=== PATIENT | male | born 1955 | race American Indian/Alaskan Native ===

== ENCOUNTER 2017-11-18 08:52 | Inpatient (IN) | payer OTHER ==
[2017-11-18] MEDS ORDERED: ASPIRIN PO ONE (10:06)
[2017-11-18 10:49] LABS: Basophils % (Auto) 0.6 % (0.0-1.8); Eosinophils # (Auto) 0.1 K/mm3 (0.0-0.4); Eosinophils % (Auto) 2.7 % (0.0-4.3); Hematocrit 41.2 % (35.5-45.6); Lymphocytes # (Auto) 1.1 K/mm3 (1.2-5.4); Lymphocytes % (Auto) 21.2 % (13.4-35.0); Mean Corpuscular HGB Conc 34 % (32-34); Mean Corpuscular Hemoglobin 28 pg (28-32); Mean Corpuscular Volume 83 fl (84-94); Monocytes # (Auto) 0.6 K/mm3 (0.0-0.8); Monocytes % (Auto) 11.9 % (0.0-7.3); Platelet Count 180 K/mm3 (140-440); Red Blood Count 4.98 M/mm3 (3.65-5.03); Red Cell Distribution Width 14.4 % (13.2-15.2)
[2017-11-18 11:03] LABS: BUN/Creatinine Ratio 19; Blood Urea Nitrogen 13 mg/dL (9-20); Calcium 8.6 mg/dL (8.4-10.2); Hemolysis Index 6
--- NOTE | 2017-11-18 11:22 | Emergency Department Report ---
ED Chest Pain HPI - General Chief Complaint: Chest Pain Stated Complaint: CHEST PAIN Time Seen by Provider: 11/18/17 10:19 Source: patient, EMS, old records reviewed Mode of arrival: Stretcher Limitations: No Limitations - History of Present Illness Initial Comments: 62-year-old male with a past medical history of hypertension and obesity presents to the hospital complaining of jaw pain radiating to his bilateral shoulders and chest intermittent 3 days. Patient is about to get dental implants and had several caps removed from his teeth and therefore he thought that the pain was due to a possible dental infection. Pt has been taking Motrin intermittently which helps with the pain. We stop the Motrin if pain returns. 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 He also denies associated nausea, vomiting, shortness of breath, or diaphoresis. Mild URI symptoms reported. Patient has several stress tests in the past but denies having one within the last 5 years. Father of [place] in his 70s. Patient has a history of smoking but denies current tobacco use. Patient was seen at a [facility] facility prior to transfer to the ED. EKG showed lateral T-wave inversions compared to 2015. Patient has troponin I levels drawn which show elevation of 3.01 with greater than 0.5 positive for acute [place]. Patient received nitroglycerin paste, aspirin, and a heparin bolus of 4000 units prior to transfer to the ED. Patient also had an outpatient chest x-ray with official report that was negative for acute cardiopulmonary process. [facility] provided discussed case with gear shaper Dr. Sue prior to transfer to the ED as per [facility] note review. Severity scale (0 -10): 8 - Related Data Allergies Allergy/AdvReac Type Severity Reaction Status Date / Time clonidine AdvReac Unknown Verified 11/18/17 09:47 Heart Score - HEART Score History: Moderately suspicious EKG: Non-specific Age: 45-65 Risk factors: 1-2 risk factors Troponin: 1-3x normal limit HEART Score: 5 ED Review of Systems ROS: Stated complaint: CHEST PAIN Other details as noted in HPI Comment: All other systems reviewed and negative Other: Constitutional: No fevers chills Eyes: No eye pain visual changes ENT: jaw pain Neck: Denies pain Respiratory: Denies cough wheezing sob Cardiovascular: Denies palpitations, syncope GI: Denies abdominal pain, nausea, vomiting, diarrhea : Denies dysuria Musculoskeletal: Denies back pain Skin: Denies rash, lesions, erythema Neurologic: Denies headache, numbness, weakness Psychiatric: Denies suicidal ideation, hallucinations ED Past Medical Hx - Past Medical History Previous Medical History?: Yes Hx Hypertension: Yes Additional medical history: Hx of cataract - Surgical History Past Surgical History?: No - Social History Smoking Status: Former Smoker Substance Use Type: None ED Physical Exam - General Limitations: No Limitations - Other Other exam information: General: No limitations, patient is alert in no acute distress Head exam: Atraumatic, normocephalic Eyes exam: Normal appearance ENT: Moist mucous membrane, normal oropharynx Neck exam: Normal inspection, full range of motion, no meningismus nontender Respiratory exam: Clear to auscultation bilateral, no wheezes, rales, crackles Cardiovascular: Normal rate and rhythm Abdomen: Soft, nondistended, and nontender, with normal bowel sounds, no rebound, or guarding Extremity: Full range of motion normal inspection no deformity Back: Normal Inspection, full range of motion, no tenderness Neurologic: Alert, oriented x3, cranial nerves intact, no motor or sensory deficit Psychiatric: normal affect, normal mood Skin: Warm, dry, intact ED Course Vital Signs 11/18/17 11/18/17 11/18/17 09:23 09:30 09:32 Temperature 98.4 F Pulse Rate 92 H 91 H Respiratory 18 18 22 Rate Blood Pressure 124/90 127/81 Blood Pressure 127/81 [Left] O2 Sat by Pulse 96 92 94 Oximetry 11/18/17 11/18/17 11/18/17 09:45 09:49 10:00 Temperature 98.4 F Pulse Rate 91 H 91 H Respiratory 15 22 13 Rate Blood Pressure 136/86 139/89 Blood Pressure 127/81 [Left] O2 Sat by Pulse 95 94 95 Oximetry - Consultations Consultation #1: 11/18/17 11:22 case d/w Dr Lunsford with [facility], per her notes case was discussed with Dr Sue cardiology here prior to transfer (confirmed by notes) unsure as to which group Dr. Sue is affiliated since both groups have a Dr. Sue and there is no first name included. Case was discussed with charge nurse was unaware that troponin was positive Patient was then transferred to the ED for evaluation [facility] physician has agreed to outpatient to be admitted here. I'm awaiting callback of cardiology fashion illustrator Consultation #2: 11/18/17 11:36 case d/w El[facility] with [facility], will eval pt ELOY score - Eloy Score Age > 65: (0) No Aspirin use within the Past 7 Days: (1) Yes 3 or more CAD Risk Factors: (1) Yes 2 or more Angina events in past 24 hrs: (1) Yes Known CAD with more than 50% Stenosis: (0) No Elevated Cardiac Markers: (1) Yes ST Deviation Greater than 0.5mm: (0) No ELOY Score: 4 ED Medical Decision Making - Lab Data Result diagrams: 11/18/17 10:45 11/18/17 10:45 Lab Results 11/18/17 11/18/17 Range/Units 10:45 10:45 WBC 5.2 (4.5-11.0) K/mm3 RBC 4.98 (3.65-5.03) M/mm3 Hgb 14.0 (11.8-15.2) gm/dl Hct 41.2 (35.5-45.6) % MCV 83 L (84-94) fl MCH 28 (28-32) pg MCHC 34 (32-34) % RDW 14.4 (13.2-15.2) % Plt Count 180 (140-440) K/mm3 Lymph % (Auto) 21.2 (13.4-35.0) % [place] % (Auto) 11.9 H (0.0-7.3) % Eos % (Auto) 2.7 (0.0-4.3) % Baso % (Auto) 0.6 (0.0-1.8) % Lymph # 1.1 L (1.2-5.4) K/mm3 [place] # 0.6 (0.0-0.8) K/mm3 Eos # 0.1 (0.0-0.4) K/mm3 Baso # 0.0 (0.0-0.1) K/mm3 Seg Neutrophils % 63.6 (40.0-70.0) % Seg Neutrophils # 3.3 (1.8-7.7) K/mm3 Sodium 139 (137-145) mmol/L Potassium 3.9 (3.6-5.0) mmol/L Chloride 98.7 (98-107) mmol/L Carbon Dioxide 28 (22-30) mmol/L Anion Gap 16 mmol/L BUN 13 (9-20) mg/dL Creatinine 0.7 L (0.8-1.5) mg/dL Estimated GFR > 60 ml/min BUN/Creatinine Ratio 19 % Glucose 231 H (75-100) mg/dL Calcium 8.6 (8.4-10.2) mg/dL Troponin T 0.754 H* (0.00-0.029) ng/mL Triglycerides 279 H (2-149) mg/dL Cholesterol 155 (50-199) mg/dL LDL Cholesterol Direct 75 (50-130) mg/dL HDL Cholesterol 25 L (40-59) mg/dL Cholesterol/HDL Ratio 6.20 % - EKG Data -: EKG Interpreted by Me EKG shows normal: sinus rhythm, axis (-26), QRS complexes (97), ST-T waves (old inf t inv, flat lat t waves) Rate: normal - EKG Data When compared to previous EKG there are: changes noted 11/18/17 11:32 EKG serum bicarbonate is reviewed. EKG from 2014 shows flat and upright lateral T waves. EKG in the office on 6:57 AM shows lateral T wave inversions. Also lateral T-wave inversions in route to the hospital as per EMS EKG Chronic inferior T wave inversions noted Critical Care Time: No Critical care attestation.: If time is entered above; I have spent that time in minutes in the direct care of this critically ill patient, excluding procedure time. ED Disposition Clinical Impression: NSTEMI (non-ST elevated myocardial infarction), HTN (hypertension) Disposition: OP ADMIT IP TO THIS HOSP Is pt being admited?: Yes Condition: Stable Time of Disposition: 11:37 (Dr galaviz/hosp)
[2017-11-18 11:36] LABS: HDL Cholesterol 25 mg/dL (40-59); LDL Cholesterol,Direct 75 mg/dL (50-130)
[2017-11-18] MEDS ORDERED: HEPARIN/ 0.45% NACL-25,000 UNIT/500 ML 25,000 UNIT/500 ML BAG IV SCH (12:00)
[2017-11-18 12:31] LABS: INR 0.95 (0.87-1.13)
[2017-11-18 12:32] LABS: Partial Thromboplastin Time 33.7 Sec. (24.2-36.6)
--- NOTE | 2017-11-18 15:57 | Consultation ---
History of Present Illness Consult date: 11/18/17 Consult reason: chest pain History of present illness: This is a 62yr old male with medical history of hypertension who presents to the hospital with complaints of chest pain. Patient was initially evaluated at [facility] who then referred the patient to this hospital for evaluation. Patient reports intermittent jaw pain associated with chest over 3 days. Patient is currently undergoing dental workup and thought his jaw pain was due to a possible dental infection. His ECG is a sinus rhythm, no acute ischemic changes. Initial labs shows a troponin T of 0.75. Cardiology consultation was requested for further evaluation. Medications and Allergies Allergies Allergy/AdvReac Type Severity Reaction Status Date / Time clonidine AdvReac Unknown Verified 11/18/17 09:47 Home Medications Medication Instructions Recorded Confirmed Last Taken Type Ibuprofen [Motrin] 800 mg PO Q6H PRN 11/18/17 11/18/17 11/17/17 History Active Meds: Active Medications Heparin Sodium/Sodium Chloride (Heparin/ 0.45% Nacl-25,000 Unit/500 Ml) 25,000 unit in 500 mls @ 20 mls/hr IV TITRATE KAILA; 1,000 UNITS/HR PRN Reason: Protocol Physical Examination Vital Signs Resp Pulse Ox 18 96 11/18/17 09:23 11/18/17 09:23 General appearance: no acute distress HEENT: Positive: PERRL Cardiac: Positive: Reg Rate and Rhythm Lungs: Positive: Decreased Breath Sounds Neuro: Positive: Grossly Intact Extremities: Absent: edema Results 11/18/17 10:45 11/18/17 10:45 Coagulation 11/18/17 Range/Units 12:00 PT 13.1 (12.2-14.9) Sec. INR 0.95 (0.87-1.13) APTT 33.7 (24.2-36.6) Sec. Lipids 11/18/17 Range/Units 10:45 Triglycerides 279 H (2-149) mg/dL Cholesterol 155 (50-199) mg/dL HDL Cholesterol 25 L (40-59) mg/dL Cholesterol/HDL Ratio 6.20 % CBC 11/18/17 Range/Units 10:45 WBC 5.2 (4.5-11.0) K/mm3 RBC 4.98 (3.65-5.03) M/mm3 Hgb 14.0 (11.8-15.2) gm/dl Hct 41.2 (35.5-45.6) % Plt Count 180 (140-440) K/mm3 Lymph # 1.1 L (1.2-5.4) K/mm3 [place] # 0.6 (0.0-0.8) K/mm3 Eos # 0.1 (0.0-0.4) K/mm3 Baso # 0.0 (0.0-0.1) K/mm3 Comprehensive Metabolic Panel 11/18/17 Range/Units 10:45 Sodium 139 (137-145) mmol/L Potassium 3.9 (3.6-5.0) mmol/L Chloride 98.7 (98-107) mmol/L Carbon Dioxide 28 (22-30) mmol/L BUN 13 (9-20) mg/dL Creatinine 0.7 L (0.8-1.5) mg/dL Glucose 231 H (75-100) mg/dL Calcium 8.6 (8.4-10.2) mg/dL Assessment and Plan NSTEMI initiated on IV heparin Hypertension Obesity We will recommend beta blockers, statin, nitro-paste, aspirin and plavix therapy. We will proceed with a left cardiac catheterization tomorrow morning for further ischemic evaluation.
[2017-11-18] MEDS ORDERED: PLAVIX PO ONE (17:00)
[2017-11-18 19:33] LABS: Creatine Kinase MB 13.7 ng/mL (0.0-4.0)
[2017-11-18] MEDS ORDERED: PLAVIX ONE (20:42)
[2017-11-18] MEDS: NITRO-BID 2% TP SCH (20:47)
--- NOTE | 2017-11-18 23:54 | History and Physical Report ---
History of Present Illness Date of examination: 11/18/17 Date of admission: 11/18/17 11:39 Chief complaint: CC Jaw pain and Chest pain 3 days History of present illness: History of Present Illness 62-year-old male with a past medical history of hypertension and obesity presents to the hospital complaining of jaw pain radiating to his bilateral shoulders and chest intermittent 3 days. Patient is about to get dental implants and had several caps removed from his teeth and therefore he thought that the pain was due to a possible dental infection. Pt has been taking Motrin intermittently which helps with the pain. We stop the Motrin if pain returns. 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 He also denies associated nausea, vomiting, shortness of breath, or diaphoresis. Mild URI symptoms reported. Patient has several stress tests in the past but denies having one within the last 5 years. Father of [place] in his 70s. Patient has a history of smoking but denies current tobacco use. Patient was seen at a [place] facility prior to transfer to the ED. EKG showed lateral T-wave inversions compared to 2015. Patient has troponin I levels drawn which show elevation of 3.01 with greater than 0.5 positive for acute [place]. Patient received nitroglycerin paste, aspirin, and a heparin bolus of 4000 units prior to transfer to the ED. Patient also had an outpatient chest x-ray with official report that was negative for acute cardiopulmonary process. [place] provided discussed case with soil science teacher Dr. Sue prior to transfer to the ED as per [place] note review. Severity scale (0 -10): 8 Past Medical History Previous Medical History?: Yes Hx Hypertension: Yes Additional medical history: Hx of cataract Surgical History Past Surgical History?: Dental surgery Social History Smoking Status: Former Smoker Substance Use Type: None Review of Systems Stated complaint: CHEST PAIN Other details as noted in HPI Comment: All other systems reviewed and negative Other: Constitutional: No fevers chills Eyes: No eye pain visual changes ENT: jaw pain Neck: Denies pain Respiratory: Denies cough wheezing sob Cardiovascular: Denies palpitations, syncope GI: Denies abdominal pain, nausea, vomiting, diarrhea : Denies dysuria Musculoskeletal: Denies back pain Skin: Denies rash, lesions, erythema Neurologic: Denies headache, numbness, weakness Psychiatric: Denies suicidal ideation, hallucinations Medications and Allergies Allergies Allergy/AdvReac Type Severity Reaction Status Date / Time clonidine AdvReac Unknown Verified 11/18/17 09:47 Home Medications Medication Instructions Recorded Confirmed Last Taken Type Ibuprofen [Motrin] 800 mg PO Q6H PRN 11/18/17 11/18/17 11/17/17 History Active Meds: Active Medications Aspirin (Baby Aspirin) 81 mg PO QDAY KAILA Atorvastatin Calcium (Lipitor) 80 mg PO QHS KAILA Clopidogrel Bisulfate (Plavix) 75 mg PO QDAY KAILA Heparin Sodium/Sodium Chloride (Heparin/ 0.45% Nacl-25,000 Unit/500 Ml) 25,000 unit in 500 mls @ 20 mls/hr IV TITRATE KAILA; 1,000 UNITS/HR PRN Reason: Protocol Last Admin: 11/18/17 17:50 Dose: 1,000 units/hr, 20 mls/hr Metoprolol Tartrate (Lopressor) 50 mg PO BID KAILA Nitroglycerin (Nitro-Bid 2%) 1 inch TP QIDNTG KAILA PRN Reason: Protocol Last Admin: 11/18/17 20:47 Dose: 1 inch Exam - Constitutional Vitals: Temp Pulse Resp BP Pulse Ox 98.4 F 108 H 13 129/86 95 11/18/17 09:45 11/18/17 20:47 11/18/17 10:00 11/18/17 20:47 11/18/17 10:00 General appearance: Present: no acute distress, well-nourished - EENT Eyes: Present: PERRL ENT: hearing intact, clear oral mucosa - Neck Neck: Present: supple, normal ROM - Respiratory Respiratory effort: normal Respiratory: bilateral: CTA - Cardiovascular Heart rate: 70 Rhythm: regular Heart Sounds: Present: S1 & S2. Absent: rub, click - Extremities Extremities: no ischemia, pulses intact, pulses symmetrical, No edema Peripheral Pulses: within normal limits - Abdominal General gastrointestinal: Present: soft, non-tender, non-distended, normal bowel sounds Male genitourinary: Present: normal - Rectal Rectal Exam: deferred - Integumentary Integumentary: Present: clear, warm, dry - Musculoskeletal Musculoskeletal: gait normal, strength equal bilaterally - Psychiatric Psychiatric: appropriate mood/affect, intact judgment & insight - Neurologic Neurologic: CNII-XII intact, moves all extremities - Allied Health Allied health notes reviewed: nursing, case management Results - Labs CBC & Chem 7: 11/18/17 10:45 11/19/17 05:05 Labs: Laboratory Last Values WBC 5.2 K/mm3 (4.5-11.0) 11/18/17 10:45 RBC 4.98 M/mm3 (3.65-5.03) 11/18/17 10:45 Hgb 14.0 gm/dl (11.8-15.2) 11/18/17 10:45 Hct 41.2 % (35.5-45.6) 11/18/17 10:45 MCV 83 fl (84-94) L 11/18/17 10:45 MCH 28 pg (28-32) 11/18/17 10:45 MCHC 34 % (32-34) 11/18/17 10:45 RDW 14.4 % (13.2-15.2) 11/18/17 10:45 Plt Count 180 K/mm3 (140-440) 11/18/17 10:45 Lymph % (Auto) 21.2 % (13.4-35.0) 11/18/17 10:45 [place] % (Auto) 11.9 % (0.0-7.3) H 11/18/17 10:45 Eos % (Auto) 2.7 % (0.0-4.3) 11/18/17 10:45 Baso % (Auto) 0.6 % (0.0-1.8) 11/18/17 10:45 Lymph # 1.1 K/mm3 (1.2-5.4) L 11/18/17 10:45 [place] # 0.6 K/mm3 (0.0-0.8) 11/18/17 10:45 Eos # 0.1 K/mm3 (0.0-0.4) 11/18/17 10:45 Baso # 0.0 K/mm3 (0.0-0.1) 11/18/17 10:45 Seg Neutrophils % 63.6 % (40.0-70.0) 11/18/17 10:45 Seg Neutrophils # 3.3 K/mm3 (1.8-7.7) 11/18/17 10:45 PT 13.1 Sec. (12.2-14.9) 11/18/17 12:00 INR 0.95 (0.87-1.13) 11/18/17 12:00 APTT 33.7 Sec. (24.2-36.6) 11/18/17 12:00 Sodium 139 mmol/L (137-145) 11/18/17 10:45 Potassium 3.9 mmol/L (3.6-5.0) 11/18/17 10:45 Chloride 98.7 mmol/L (98-107) 11/18/17 10:45 Carbon Dioxide 28 mmol/L (22-30) 11/18/17 10:45 Anion Gap 16 mmol/L 11/18/17 10:45 BUN 13 mg/dL (9-20) 11/18/17 10:45 Creatinine 0.7 mg/dL (0.8-1.5) L 11/18/17 10:45 Estimated GFR > 60 ml/min 11/18/17 10:45 BUN/Creatinine Ratio 19 % 11/18/17 10:45 Glucose 231 mg/dL (75-100) H 11/18/17 10:45 Calcium 8.6 mg/dL (8.4-10.2) 11/18/17 10:45 Total Creatine Kinase 166 units/L (55-170) 11/18/17 18:29 CK-MB (CK-2) 13.7 ng/mL (0.0-4.0) H 11/18/17 18:29 CK-MB (CK-2) Rel Index 8.2 (0-4) H 11/18/17 18:29 Troponin T 0.756 ng/mL (0.00-0.029) H* 11/18/17 18:29 Triglycerides 279 mg/dL (2-149) H 11/18/17 10:45 Cholesterol 155 mg/dL (50-199) 11/18/17 10:45 LDL Cholesterol Direct 75 mg/dL (50-130) 11/18/17 10:45 HDL Cholesterol 25 mg/dL (40-59) L 11/18/17 10:45 Cholesterol/HDL Ratio 6.20 % 11/18/17 10:45 Short CBC 11/18/17 Range/Units 10:45 WBC 5.2 (4.5-11.0) K/mm3 Hgb 14.0 (11.8-15.2) gm/dl Hct 41.2 (35.5-45.6) % Plt Count 180 (140-440) K/mm3 BMP 11/18/17 11/19/17 10:45 05:05 Sodium 139 139 Potassium 3.9 3.7 Chloride 98.7 97.8 L Carbon Dioxide 28 27 BUN 13 13 Creatinine 0.7 L 0.7 L Glucose 231 H 225 H Calcium 8.6 8.4 Cardiac Enzymes 11/18/17 11/18/17 11/18/17 Range/Units 10:45 18:29 18:29 Total Creatine Kinase 166 (55-170) units/L CK-MB (CK-2) 13.7 H (0.0-4.0) ng/mL Troponin T 0.754 H* 0.756 H* (0.00-0.029) ng/mL 11/19/17 11/19/17 11/19/17 Range/Units 00:10 05:05 07:39 Total Creatine Kinase 154 154 (55-170) units/L CK-MB (CK-2) 7.1 H 6.6 H (0.0-4.0) ng/mL Troponin T 0.746 H* 0.846 H* 0.818 H* (0.00-0.029) ng/mL - Imaging and Cardiology EKG: report reviewed (HR 85 T wave inversions in L 2 # Avf ) Assessment and Plan Advance Directives: Yes (Fc) VTE prophylaxis?: Chemical Plan of care discussed with patient/family: Yes - Patient Problems (1) NSTEMI (non-ST elevated myocardial infarction) Current Visit: Yes Status: Acute Plan to address problem: Troponins elevated c/w NSTEMI For Cath in AM Heparin in the mean time (2) HTN (hypertension) Current Visit: Yes Status: Chronic Qualifiers: Hypertension type: essential hypertension Qualified Code(s): I10 - Essential (primary) hypertension Plan to address problem: Losartan and coreg initiated (3) T2DM (type 2 diabetes mellitus) Current Visit: Yes Status: Acute Qualifiers: Diabetes mellitus complication status: without complication Plan to address problem: Patient may have DM Check A1c Coverage in meantime (4) DVT prophylaxis Current Visit: Yes Status: Acute Plan to address problem: on Heparin
[2017-11-19] MEDS: LOPRESSOR PO SCH ×3 (01:03→21:32)
[2017-11-19] MEDS ORDERED: PERCOCET 5/325 PO PRN (01:29)
[2017-11-19] MEDS ORDERED: ZOFRAN IV PRN (01:29)
[2017-11-19] MEDS ORDERED: MILK OF MAGNESIA PO PRN (01:29)
[2017-11-19] MEDS ORDERED: MORPHINE IV PRN ×2 (01:29)
[2017-11-19] MEDS ORDERED: TYLENOL PO PRN (01:29)
[2017-11-19] MEDS ORDERED: DULCOLAX PR PRN (01:29)
[2017-11-19] MEDS ORDERED: D5NS 1,000 ML IV SCH (02:00)
[2017-11-19] MEDS: NITRO-BID 2% TP SCH ×4 (06:01→17:18)
[2017-11-19 06:44] LABS: INR 1.05 (0.87-1.13)
[2017-11-19 06:53] LABS: BUN/Creatinine Ratio 19; Blood Urea Nitrogen 13 mg/dL (9-20); Calcium 8.4 mg/dL (8.4-10.2); Hemolysis Index 8
[2017-11-19 07:00] LABS: Creatine Kinase MB 7.1 ng/mL (0.0-4.0)
[2017-11-19 08:11] LABS: Creatine Kinase MB 6.6 ng/mL (0.0-4.0)
[2017-11-19] MEDS ORDERED: PLAVIX PO SCH (10:00)
--- NOTE | 2017-11-19 10:34 | Progress Note ---
<JOSEE MURDOCK - Last Filed: 11/19/17 10:34> Assessment and Plan Assessment and plan: 62-year-old male with a past medical history of hypertension and obesity presents to the hospital complaining of jaw pain radiating to his bilateral shoulders and chest intermittent 3 days. Patient is about to get dental implants and had several caps removed from his teeth and therefore he thought that the pain was due to a possible dental infection. Pt has been taking Motrin intermittently which helps with the pain. We stop the Motrin if pain returns. 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 He also denies associated nausea, vomiting, shortness of breath, or diaphoresis. Mild URI symptoms reported. Patient has several stress tests in the past but denies having one within the last 5 years. Father of NM in his 70s. Patient has a history of smoking but denies current tobacco use. Patient was seen at a [facility] facility prior to transfer to the ED. EKG showed lateral T-wave inversions compared to 2015. Patient has troponin I levels drawn which show elevation of 3.01 with greater than 0.5 positive for acute NM. Patient received nitroglycerin paste, aspirin, and a heparin bolus of 4000 units prior to transfer to the ED. Patient also had an outpatient chest x-ray with official report that was negative for acute cardiopulmonary process. [facility] provided discussed case with order tracer Dr. Sue prior to transfer to the ED as per [facility] note review. (1) NSTEMI (non-ST elevated myocardial infarction) Current Visit: Yes Status: Acute Plan to address problem: Troponins elevated c/w NSTEMI For Cath in AM Heparin in the mean time (2) HTN (hypertension) Current Visit: Yes Status: Chronic Qualifiers: Hypertension type: essential hypertension Qualified Code(s): I10 - Essential (primary) hypertension Plan to address problem: Losartan and coreg initiated (3) T2DM (type 2 diabetes mellitus) Current Visit: Yes Status: Acute Qualifiers: Diabetes mellitus complication status: without complication Plan to address problem: Patient may have DM Check A1c Coverage in meantime (4) DVT prophylaxis Current Visit: Yes Status: Acute Plan to address problem: on Heparin Hospitalist Physical - Constitutional Vitals: Temp Pulse Resp BP Pulse Ox 98.3 F 89 19 140/70 92 11/19/17 04:14 01/10/18 06:01 11/19/17 04:14 11/19/17 06:01 11/19/17 04:14 General appearance: Present: no acute distress, well-nourished Results - Labs CBC & Chem 7: 11/18/17 10:45 11/19/17 05:05 Labs: Laboratory Last Values WBC 5.2 K/mm3 (4.5-11.0) 11/18/17 10:45 RBC 4.98 M/mm3 (3.65-5.03) 11/18/17 10:45 Hgb 14.0 gm/dl (11.8-15.2) 11/18/17 10:45 Hct 41.2 % (35.5-45.6) 11/18/17 10:45 MCV 83 fl (84-94) L 11/18/17 10:45 MCH 28 pg (28-32) 11/18/17 10:45 MCHC 34 % (32-34) 11/18/17 10:45 RDW 14.4 % (13.2-15.2) 11/18/17 10:45 Plt Count 180 K/mm3 (140-440) 11/18/17 10:45 Lymph % (Auto) 21.2 % (13.4-35.0) 11/18/17 10:45 Edmonson % (Auto) 11.9 % (0.0-7.3) H 11/18/17 10:45 Eos % (Auto) 2.7 % (0.0-4.3) 11/18/17 10:45 Baso % (Auto) 0.6 % (0.0-1.8) 11/18/17 10:45 Lymph # 1.1 K/mm3 (1.2-5.4) L 11/18/17 10:45 Edmonson # 0.6 K/mm3 (0.0-0.8) 11/18/17 10:45 Eos # 0.1 K/mm3 (0.0-0.4) 11/18/17 10:45 Baso # 0.0 K/mm3 (0.0-0.1) 11/18/17 10:45 Seg Neutrophils % 63.6 % (40.0-70.0) 11/18/17 10:45 Seg Neutrophils # 3.3 K/mm3 (1.8-7.7) 11/18/17 10:45 PT 14.2 Sec. (12.2-14.9) 11/19/17 05:05 INR 1.05 (0.87-1.13) 11/19/17 05:05 APTT 40.0 Sec. (24.2-36.6) H 11/19/17 05:05 Heparin Anti-Xa Level < 0.10 U.I./ml (0.3-0.7) L 11/19/17 07:39 Sodium 139 mmol/L (137-145) 11/19/17 05:05 Potassium 3.7 mmol/L (3.6-5.0) 11/19/17 05:05 Chloride 97.8 mmol/L (98-107) L 11/19/17 05:05 Carbon Dioxide 27 mmol/L (22-30) 11/19/17 05:05 Anion Gap 18 mmol/L 11/19/17 05:05 BUN 13 mg/dL (9-20) 11/19/17 05:05 Creatinine 0.7 mg/dL (0.8-1.5) L 11/19/17 05:05 Estimated GFR > 60 ml/min 11/19/17 05:05 BUN/Creatinine Ratio 19 % 11/19/17 05:05 Glucose 225 mg/dL (75-100) H 11/19/17 05:05 Hemoglobin A1c 8.4 % (4-6) H 11/19/17 05:05 Calcium 8.4 mg/dL (8.4-10.2) 11/19/17 05:05 Total Creatine Kinase 154 units/L (55-170) 11/19/17 07:39 CK-MB (CK-2) 6.6 ng/mL (0.0-4.0) H 11/19/17 07:39 CK-MB (CK-2) Rel Index 4.2 (0-4) H 11/19/17 07:39 Troponin T 0.818 ng/mL (0.00-0.029) H* 11/19/17 07:39 Triglycerides 279 mg/dL (2-149) H 11/18/17 10:45 Cholesterol 155 mg/dL (50-199) 11/18/17 10:45 LDL Cholesterol Direct 75 mg/dL (50-130) 11/18/17 10:45 HDL Cholesterol 25 mg/dL (40-59) L 11/18/17 10:45 Cholesterol/HDL Ratio 6.20 % 11/18/17 10:45 <SANTINO LOVEMICKEY R - Last Filed: 11/20/17 07:43> Assessment and Plan Assessment and plan: I saw and evaluated the patient. I agree with the findings and the plan of care as documented in the Nurse Practitioner's~note, with the following corrections and additions. S/p cath today showed multi vessel disease, will need CABG. Report showed: Significant 3 vessel disease WHEEL PRESS CLERK of the proximal Cx 90-99% stenosis of the distal RCA 60-70% mid LAD LVEF 40-45% Patient will be transfer to [place] upon bed availability. heparin drip will be reinitiated tonight 6hs after removal of the sheath. History Interval history: pt seen and examined plan for cath today Hospitalist Physical - Constitutional Vitals: Temp Pulse Resp BP Pulse Ox 98.7 F 84 20 167/102 93 11/20/17 04:05 11/20/17 04:05 11/20/17 04:05 11/20/17 04:05 11/20/17 04:05 - EENT Eyes: Present: PERRL, EOM intact ENT: hearing intact, clear oral mucosa, dentition normal - Neck Neck: Present: supple, normal ROM - Respiratory Respiratory effort: normal Respiratory: bilateral: CTA - Cardiovascular Rhythm: regular Heart Sounds: Present: S1 & S2 - Extremities Extremities: no ischemia, No edema - Abdominal General gastrointestinal: soft, non-tender - Integumentary Integumentary: Present: warm, dry - Psychiatric Psychiatric: appropriate mood/affect - Neurologic Neurologic: no focal deficits Results - Labs CBC & Chem 7: 11/20/17 05:35 11/19/17 05:05 Labs: Laboratory Last Values WBC 5.2 K/mm3 (4.5-11.0) 11/18/17 10:45 RBC 4.98 M/mm3 (3.65-5.03) 11/18/17 10:45 Hgb 13.7 gm/dl (11.8-15.2) 11/20/17 05:35 Hct 40.1 % (35.5-45.6) 11/20/17 05:35 MCV 83 fl (84-94) L 11/18/17 10:45 MCH 28 pg (28-32) 11/18/17 10:45 MCHC 34 % (32-34) 11/18/17 10:45 RDW 14.4 % (13.2-15.2) 11/18/17 10:45 Plt Count 160 K/mm3 (140-440) 11/20/17 05:35 Lymph % (Auto) 21.2 % (13.4-35.0) 11/18/17 10:45 Edmonson % (Auto) 11.9 % (0.0-7.3) H 11/18/17 10:45 Eos % (Auto) 2.7 % (0.0-4.3) 11/18/17 10:45 Baso % (Auto) 0.6 % (0.0-1.8) 11/18/17 10:45 Lymph # 1.1 K/mm3 (1.2-5.4) L 11/18/17 10:45 Edmonson # 0.6 K/mm3 (0.0-0.8) 11/18/17 10:45 Eos # 0.1 K/mm3 (0.0-0.4) 11/18/17 10:45 Baso # 0.0 K/mm3 (0.0-0.1) 11/18/17 10:45 Seg Neutrophils % 63.6 % (40.0-70.0) 11/18/17 10:45 Seg Neutrophils # 3.3 K/mm3 (1.8-7.7) 11/18/17 10:45 PT 14.2 Sec. (12.2-14.9) 11/19/17 05:05 INR 1.05 (0.87-1.13) 11/19/17 05:05 APTT 40.0 Sec. (24.2-36.6) H 11/19/17 05:05 Heparin Anti-Xa Level < 0.10 U.I./ml (0.3-0.7) L 11/20/17 05:35 Sodium 139 mmol/L (137-145) 11/19/17 05:05 Potassium 3.7 mmol/L (3.6-5.0) 11/19/17 05:05 Chloride 97.8 mmol/L (98-107) L 11/19/17 05:05 Carbon Dioxide 27 mmol/L (22-30) 11/19/17 05:05 Anion Gap 18 mmol/L 11/19/17 05:05 BUN 13 mg/dL (9-20) 11/19/17 05:05 Creatinine 0.7 mg/dL (0.8-1.5) L 11/19/17 05:05 Estimated GFR > 60 ml/min 11/19/17 05:05 BUN/Creatinine Ratio 19 % 11/19/17 05:05 Glucose 225 mg/dL (75-100) H 11/19/17 05:05 POC Glucose 159 (70-105) H 11/19/17 21:58 Hemoglobin A1c 8.4 % (4-6) H 11/19/17 05:05 Calcium 8.4 mg/dL (8.4-10.2) 11/19/17 05:05 Total Creatine Kinase 138 units/L (55-170) 11/19/17 16:11 CK-MB (CK-2) 5.5 ng/mL (0.0-4.0) H 11/19/17 16:11 CK-MB (CK-2) Rel Index 3.9 (0-4) 11/19/17 16:11 Troponin T 0.967 ng/mL (0.00-0.029) H* 11/19/17 16:11 Triglycerides 279 mg/dL (2-149) H 11/18/17 10:45 Cholesterol 155 mg/dL (50-199) 11/18/17 10:45 LDL Cholesterol Direct 75 mg/dL (50-130) 11/18/17 10:45 HDL Cholesterol 25 mg/dL (40-59) L 11/18/17 10:45 Cholesterol/HDL Ratio 6.20 % 11/18/17 10:45
[2017-11-19] MEDS ORDERED: ECOTRIN PO ONE ×2 (11:26→12:30)
[2017-11-19] MEDS ORDERED: PLAVIX ONE (11:26)
[2017-11-19] MEDS ORDERED: NITROGLYCERIN SYRINGE 3 ML ONE (11:50)
[2017-11-19] MEDS ORDERED: HEPARIN/NS 5000 UNIT/500ML(CATH LAB) 1,000 ML IR ONE (11:50)
[2017-11-19] MEDS ORDERED: CALAN ONE (11:50)
[2017-11-19] MEDS ORDERED: XYLOCAINE 2% INFILTRATI ONE ×2 (11:50→12:17)
[2017-11-19] MEDS ORDERED: HEPARIN 10,000 UNITS/10 ML ONE (11:50)
[2017-11-19] MEDS ORDERED: SUBLIMAZE ONE (11:51)
[2017-11-19] MEDS ORDERED: VERSED ONE (11:51)
[2017-11-19] MEDS ORDERED: NACL 0.9% 500 ML 500 ML ONE (11:52)
[2017-11-19] MEDS ORDERED: NACL 0.9% IR ONE (12:00)
[2017-11-19] MEDS ORDERED: HEPARIN IR ONE (12:00)
[2017-11-19] MEDS ORDERED: VERSED IV ONE (12:14)
[2017-11-19] MEDS ORDERED: SUBLIMAZE IV ONE (12:15)
[2017-11-19] MEDS ORDERED: NITROGLYCERIN SYRINGE 3 ML UD ONE (12:18)
[2017-11-19] MEDS ORDERED: HEPARIN 10,000 UNITS/10 ML IV ONE (12:18)
[2017-11-19] MEDS ORDERED: CALAN IV ONE (12:18)
[2017-11-19] MEDS: BABY ASPIRIN PO SCH (12:25)
[2017-11-19] MEDS: COREG PO SCH ×2 (12:25→21:32)
[2017-11-19] MEDS: COZAAR PO SCH (12:26)
[2017-11-19] MEDS: NOVOLOG SUB-Q SCH ×3 (12:26→22:00)
--- NOTE | 2017-11-19 13:50 | Event Note ---
Date: 11/19/17 Interventional review of coronary angios: 1. 95% bifurcation stenosis of a large distal RCA. 2. Long ENGINE BUILDUP MECHANIC of a large circumflex, with distal L-L collaterals. 3. Mid LAD stenosis of borderline severity. 4. Mild-moderate LV dysfunction. Recommend CABG, referred for [facility]. Hold Plavix.
--- NOTE | 2017-11-19 14:03 | Discharge Summary ---
<JOSEE MURDOCK - Last Filed: 11/19/17 16:51> Providers - Providers Date of Admission: 11/18/17 11:39 Date of discharge: 11/19/17 Attending physician: TELLY LOVE 11/18/17 11:37 Consult to Physician [CONS] Urgent Consulting Provider: FRANK DE LA O Reason For Exam: nstemi Notified:: y If yes, spoke with:: Reji galvez Primary care physician: MIGNON RUSSO Hospitalization Condition: Stable Hospital course: 62-year-old male with a past medical history of hypertension and obesity presents to the hospital complaining of jaw pain radiating to his bilateral shoulders and chest intermittent 3 days. Patient is about to get dental implants and had several caps removed from his teeth and therefore he thought that the pain was due to a possible dental infection. Pt has been taking Motrin intermittently which helps with the pain. We stop the Motrin if pain returns. 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 He also denies associated nausea, vomiting, shortness of breath, or diaphoresis. Mild URI symptoms reported. Patient has several stress tests in the past but denies having one within the last 5 years. Patient was seen at a [facility] facility prior to transfer to the ED. EKG showed lateral T-wave inversions compared to 2015. Patient has troponin I levels drawn which show elevation of 3.01 with greater than 0.5 positive for acute MO. Patient received nitroglycerin paste, aspirin, and a heparin bolus of 4000 units prior to transfer to the ED. Patient also had an outpatient chest x-ray with official report that was negative for acute cardiopulmonary process. [facility] provided discussed case with gas main fitter Dr. Sue prior to transfer to the ED as per [facility] note review. Patient underwent cardiac cath which showed Significant 3 vessel disease, CAPTION WRITER of the proximal Cx, 90-99% stenosis of the distal RCA,60-70% mid LAD, LVEF 40-45%. Recommendation from cardiology was for patient to undergo CABG. Pt to be transferred to Dr Álvarez's care at [place]. Discharge Diagnosis NSTEMI HTN Type 2 DM DVT Prophylaxis Disposition: DC/TX-70 ANOTHER TYPE THCARE Core Measure Documentation - Palliative Care Palliative Care/ Comfort Measures: Not Applicable Exam - Constitutional Vitals: Temp Pulse Resp BP Pulse Ox 98.4 F 91 H 18 151/98 93 11/19/17 11:13 11/19/17 11:13 11/19/17 11:13 11/19/17 11:13 11/19/17 11:13 General appearance: Present: no acute distress, well-nourished, obese - EENT Eyes: Present: PERRL ENT: hearing intact, clear oral mucosa - Neck Neck: Present: supple, normal ROM - Respiratory Respiratory effort: normal Respiratory: bilateral: CTA - Cardiovascular Rhythm: regular Heart Sounds: Present: S1 & S2. Absent: rub, click - Extremities Extremities: pulses symmetrical, No edema Peripheral Pulses: within normal limits - Abdominal General gastrointestinal: Present: soft, non-tender, non-distended, normal bowel sounds Male genitourinary: Present: deferred - Rectal Rectal Exam: deferred - Integumentary Integumentary: Present: clear, warm, dry - Musculoskeletal Musculoskeletal: gait normal, strength equal bilaterally - Psychiatric Psychiatric: appropriate mood/affect, intact judgment & insight - Neurologic Neurologic: CNII-XII intact, moves all extremities - Allied Health Allied health notes reviewed: nursing, case management Plan Activity: fall precautions, other (No strenuous activity unless cleared by gas main fitter/PCP) Diet: low fat, low cholesterol, low salt, diabetic Follow up with: FRANK DE LA O MD [Staff Physician] - 7 Days <TELLY LOVE - Last Filed: 11/24/17 09:58> Providers - Providers Date of Admission: 11/18/17 11:39 Date of discharge: 11/21/17 Attending physician: TELLY LOVE 11/18/17 11:37 Consult to Physician [CONS] Urgent Consulting Provider: FRANK DE LA O Reason For Exam: nstemi Notified:: y If yes, spoke with:: Reji galvez 11/19/17 16:06 Consult to Cardiac Rehabilitation [CONS] Routine Reason For Exam: Cardiac Rehab Evaluation Primary care physician: MIGNON RUSSO Exam - Constitutional Vitals: Temp Pulse Resp BP Pulse Ox 98.7 F 84 20 167/102 93 11/20/17 04:05 11/20/17 04:05 11/20/17 04:05 11/20/17 04:05 11/20/17 04:05
--- NOTE | 2017-11-19 16:06 | Progress Note ---
Assessment and Plan NSTEMI Significant 3 vessel disease PIT OPERATOR of the proximal Cx 90-99% stenosis of the distal RCA 60-70% mid LAD LVEF 40-45% Systemic Hypertension Type II DM Recommendations: CABG Resume IV heparin 6 hours after sheath removal Subjective Date of service: 11/19/17 Principal diagnosis: NSTEMI Interval history: Patient underwent a LHC today without complications Objective Vital Signs Temp Pulse Pulse Resp BP BP Pulse Ox 11/19/17 11:13 98.4 F 91 H 18 151/98 93 11/19/17 06:01 89 140/70 11/19/17 04:14 98.3 F 89 19 140/70 92 11/19/17 03:02 100 H 20 11/19/17 00:53 98.0 F 97 H 20 134/85 93 11/18/17 23:49 111 H 11/18/17 21:00 135/92 11/18/17 20:51 22 129/86 11/18/17 20:47 108 H 129/86 11/18/17 20:41 14 137/96 11/18/17 20:31 16 137/96 11/18/17 20:25 21 137/96 11/18/17 20:16 137/96 11/18/17 20:00 107/66 11/18/17 19:45 109/71 11/18/17 19:30 13 123/85 11/18/17 19:21 27 H 118/89 11/18/17 19:11 13 114/76 11/18/17 19:00 16 114/76 11/18/17 18:51 26 H 113/81 11/18/17 18:41 15 102/45 11/18/17 18:30 13 102/45 11/18/17 18:21 15 119/82 11/18/17 18:11 17 109/69 11/18/17 18:07 13 116/73 11/18/17 17:50 100 H 40 H 116/73 11/18/17 17:41 103 H 21 108/58 11/18/17 17:31 96 H 21 108/58 11/18/17 17:21 94 H 13 109/60 11/18/17 17:11 96 H 26 H 116/73 11/18/17 17:01 116/73 11/18/17 16:41 114/66 93 11/18/17 16:30 114/66 96 11/18/17 16:21 107/65 94 11/18/17 16:11 122/68 93 - Physical Examination HEENT: Positive: PERRL Neck: Positive: neck supple Cardiac: Positive: Reg Rate and Rhythm Lungs: Positive: Normal Exam Neuro: Positive: Grossly Intact Extremities: Absent: edema - Labs and Meds Cardiac Enzymes 11/18/17 11/19/17 11/19/17 Range/Units 18:29 05:05 07:39 CK-MB (CK-2) 13.7 H 7.1 H 6.6 H (0.0-4.0) ng/mL Coagulation 11/19/17 Range/Units 05:05 PT 14.2 (12.2-14.9) Sec. INR 1.05 (0.87-1.13) APTT 40.0 H (24.2-36.6) Sec. Comprehensive Metabolic Panel 11/19/17 Range/Units 05:05 Sodium 139 (137-145) mmol/L Potassium 3.7 (3.6-5.0) mmol/L Chloride 97.8 L (98-107) mmol/L Carbon Dioxide 27 (22-30) mmol/L BUN 13 (9-20) mg/dL Creatinine 0.7 L (0.8-1.5) mg/dL Glucose 225 H (75-100) mg/dL Calcium 8.4 (8.4-10.2) mg/dL - Imaging and Cardiology EKG: report reviewed (HR 85 T wave inversions in L 2 # Avf )
[2017-11-19 18:07] LABS: Creatine Kinase MB 5.5 ng/mL (0.0-4.0)
[2017-11-19] MEDS: HEPARIN/ 0.45% NACL-25,000 UNIT/500 ML 25,000 UNIT/500 ML BAG IV SCH (20:25)
--- NOTE | 2017-11-19 21:37 | Cardiac Catherization Report ---
INDICATION: Non-ST elevation myocardial infarction. ORDERING PHYSICIAN: Dr. Stewart Singh. PROCEDURES PERFORMED: 1. Selective left and right coronary angiography. 2. Left ventriculography. DESCRIPTION OF PROCEDURE: 1. After obtaining written consent, the patient was draped using sterile technique. 2. A 2% lidocaine was injected into the right wrist. 3. A 6-Liberian vascular sheath was inserted into the right radial artery. 4. A 6-Liberian JL3.5 catheter was used to selectively engage left coronary artery. 5. A 6-Liberian 3DRC catheter was used to selectively engage the right coronary artery. 6. A 6-Liberian JR4 catheter was used to hand inject the left ventriculogram. 7. No complications occurred during the procedure. 8. Hemostasis was achieved at the end of the procedure using manual pressure. SPECIMEN REMOVED: None. ESTIMATED BLOOD LOSS: Minimal. FINDINGS: HEMODYNAMICS: Aortic pressure 147/103, LV systolic pressure 160 mmHg, LVEDP is 28 mmHg. CARDIAC STRUCTURES: The left ventricle is normal in size with evidence of mild global left ventricular hypokinesis. The ejection fraction is estimated between 40 and 45%. CORONARY ANATOMY: 1. This is a right dominant circulation. 2. The left main is angiographically normal. 3. LAD has evidence of a borderline 60-70% tubular stenosis noted in the midsegment. 4. There is 100% occlusion of the proximal circumflex artery, which reconstituted distally via left to left collaterals. 5. The right coronary artery is a large dominant vessel. There is evidence of a 90-99% distal right coronary artery bifurcation lesion at the ostium of the PLVB. IMPRESSION: 1. Significant three-vessel disease with 100% occlusion of the proximal circumflex artery and distal reconstitution via left to left collaterals. 2. Borderline 60-70% mid left anterior descending lesion. 3. Bifurcation 90 to 99% distal right coronary artery at the ostium of the posterior lateral ventricular branch. 4. Mild left ventricular dysfunction with an ejection fraction estimated between 40 and 45%. RECOMMENDATIONS: The patient will be recommended for coronary artery bypass grafting. JOB# [id number] CELESTINE/OSWALDO
[2017-11-20] MEDS: NITRO-BID 2% TP SCH ×4 (05:30→17:17)
[2017-11-20] MEDS: HEPARIN/ 0.45% NACL-25,000 UNIT/500 ML 25,000 UNIT/500 ML BAG IV SCH ×3 (06:14→22:51)
[2017-11-20 06:38] LABS: Hematocrit 40.1 % (35.5-45.6); Hemoglobin 13.7 gm/dl (11.8-15.2)
[2017-11-20] MEDS: NOVOLOG SUB-Q SCH ×3 (08:00→18:43)
[2017-11-20] MEDS ORDERED: HEPARIN IV ONE (10:04)
[2017-11-20] MEDS: COZAAR PO SCH (10:52)
[2017-11-20] MEDS: BABY ASPIRIN PO SCH (10:52)
[2017-11-20] MEDS: COREG PO SCH (10:52)
[2017-11-20] MEDS: LOPRESSOR PO SCH ×2 (10:53→21:02)
[2017-11-20] MEDS ORDERED: HEPARIN 10,000 UNITS/10 ML IV ONE (11:00)
--- NOTE | 2017-11-20 12:29 | Progress Note ---
Assessment and Plan - Patient Problems (1) NSTEMI (non-ST elevated myocardial infarction) Current Visit: Yes Status: Acute Plan to address problem: Patient presented with non-ST elevation myocardial infarction. A cardiac catheterization demonstrated three-vessel disease. There is a 95% bifurcation stenosis of a large caliber right coronary artery, with the lesion according the bifurcation of the posterior descending branch and large posterolateral. In addition, he has a long segment of the chronic total occlusion of a large circumflex, with some distal reconstitution by left to left collaterals. The LAD also has a stenosis of borderline severity, 60-70% in its midsegment. In addition, there is a mild to moderate cardiomyopathy with ejection fraction approximately 40%. Optimal revascularization strategy is coronary artery bypass surgery. Subjective Date of service: 11/20/17 Principal diagnosis: NSTEMI Interval history: Patient is comfortable, sitting up in his room on IV heparin, awaiting transfer to [place] for coronary bypass evaluation. There is no chest pain, no cardiac complaints. Objective Vital Signs Temp Pulse Resp BP BP Pulse Ox 11/20/17 10:52 113/78 11/20/17 09:53 90 11/20/17 07:48 98.6 F 98 H 20 113/78 90 11/20/17 04:05 98.7 F 84 20 167/102 93 11/20/17 00:10 98.4 F 82 20 139/86 94 11/19/17 21:12 98.3 F 96 H 20 160/94 93 11/19/17 20:59 98.3 F 96 H 20 160/94 93 11/19/17 20:07 98.3 F 94 H 20 160/94 93 11/19/17 19:20 82 11/19/17 16:25 99.4 F 98 H 18 100/65 98 11/19/17 16:14 98.2 F 20 145/86 - Physical Examination General: No Apparent Distress HEENT: Positive: PERRL Neck: Positive: neck supple Cardiac: Positive: Reg Rate and Rhythm Lungs: Positive: Decreased Breath Sounds Neuro: Positive: Grossly Intact Abdomen: Positive: Soft Skin: Positive: Clear Extremities: Absent: edema - Labs and Meds Cardiac Enzymes 11/19/17 Range/Units 16:11 CK-MB (CK-2) 5.5 H (0.0-4.0) ng/mL CBC 11/20/17 Range/Units 05:35 Hgb 13.7 (11.8-15.2) gm/dl Hct 40.1 (35.5-45.6) % Plt Count 160 (140-440) K/mm3 - Imaging and Cardiology EKG: report reviewed (HR 85 T wave inversions in L 2 # Avf )
[2017-11-20] MEDS ORDERED: ATIVAN IV ONE (23:00)
[2017-11-21] MEDS: COREG PO SCH ×3 (01:33→21:17)
[2017-11-21] MEDS: BABY ASPIRIN PO SCH (11:30)
[2017-11-21] MEDS: COZAAR PO SCH (11:32)
--- NOTE | 2017-11-21 11:44 | Progress Note ---
Assessment and Plan NSTEMI A cardiac catheterization demonstrated three-vessel disease. In addition, there is a mild to moderate cardiomyopathy with ejection fraction approximately 40%. on IV heparin Hypertension Obesity Awaits transfer to [facility] for CT surgeon evaluation for coronary artery bypass surgery. Continue current medical therapy. Subjective Date of service: 11/21/17 Principal diagnosis: NSTEMI Interval history: Patient denies chest pain and shortness of breath. Awaits transfer to [facility]. Objective Vital Signs Temp Pulse Resp BP BP Pulse Ox 11/21/17 11:32 159/97 11/21/17 11:30 73 159/97 11/21/17 08:31 97.4 F L 74 20 159/97 93 11/21/17 04:35 98.1 F 67 18 125/69 94 11/21/17 02:53 76 11/21/17 01:33 76 122/83 11/21/17 00:10 98.2 F 71 18 129/88 95 11/20/17 21:02 76 122/83 11/20/17 19:36 98.5 F 76 18 122/83 95 11/20/17 17:08 70 143/89 97 11/20/17 17:07 98.7 F 69 18 143/89 96 - Physical Examination General: No Apparent Distress HEENT: Positive: PERRL Neck: Positive: trachea midline Cardiac: Positive: Reg Rate and Rhythm Lungs: Positive: Decreased Breath Sounds Neuro: Positive: Grossly Intact Extremities: Absent: edema - Imaging and Cardiology EKG: report reviewed (HR 85 T wave inversions in L 2 # Avf )
--- NOTE | 2017-11-21 12:53 | Progress Note ---
Assessment and Plan 62-year-old male with a past medical history of hypertension and obesity presents to the hospital complaining of jaw pain radiating to his bilateral shoulders and chest intermittent 3 days. Patient is about to get dental implants and had several caps removed from his teeth and therefore he thought that the pain was due to a possible dental infection. Pt has been taking Motrin intermittently which helps with the pain. We stop the Motrin if pain returns. 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 He also denies associated nausea, vomiting, shortness of breath, or diaphoresis. Mild URI symptoms reported. Patient has several stress tests in the past but denies having one within the last 5 years. Father of [place] in his 70s. Patient has a history of smoking but denies current tobacco use. Patient was seen at a [facility] facility prior to transfer to the ED. EKG showed lateral T-wave inversions compared to 2015. Patient has troponin I levels drawn which show elevation of 3.01 with greater than 0.5 positive for acute [place]. Patient received nitroglycerin paste, aspirin, and a heparin bolus of 4000 units prior to transfer to the ED. Patient also had an outpatient chest x-ray with official report that was negative for acute cardiopulmonary process. [facility] provided discussed case with hearing therapist Dr. Sue prior to transfer to the ED as per [facility] note review. (1) NSTEMI (non-ST elevated myocardial infarction) Current Visit: Yes Status: Acute Plan to address problem: Troponins elevated c/w NSTEMI need bypass, plan to transfer to [facility] Heparin in the mean time Report showed: Significant 3 vessel disease [employer] of the proximal Cx 90-99% stenosis of the distal RCA 60-70% mid LAD LVEF 40-45% (2) HTN (hypertension) Current Visit: Yes Status: Chronic Qualifiers: Hypertension type: essential hypertension Qualified Code(s): I10 - Essential (primary) hypertension Plan to address problem: Losartan and coreg initiated (3) T2DM (type 2 diabetes mellitus) Current Visit: Yes Status: Acute Qualifiers: Diabetes mellitus complication status: without complication Plan to address problem: Patient may have DM A1c 8.4 Coverage in meantime (4) DVT prophylaxis Current Visit: Yes Status: Acute Plan to address problem: on Heparin Subjective Date of service: 11/20/17 Principal diagnosis: NSTEMI Interval history: pt seen and examined waiting for transfer to [facility] very upset this morning as his heparin could not be initiated on time due to iv access issue Objective - Exam Narrative Exam: - EENT Eyes: Present: PERRL, EOM intact ENT: hearing intact, clear oral mucosa, dentition normal - Neck Neck: Present: supple, normal ROM - Respiratory Respiratory effort: normal Respiratory: bilateral: CTA - Cardiovascular Rhythm: regular Heart Sounds: Present: S1 & S2 - Extremities Extremities: no ischemia, No edema - Abdominal General gastrointestinal: soft, non-tender - Integumentary Integumentary: Present: warm, dry - Psychiatric Psychiatric: appropriate mood/affect - Neurologic Neurologic: no focal deficits - Constitutional Vitals: Vital Signs - 12hr 11/21/17 11/21/17 11/21/17 01:33 02:53 04:35 Temperature 98.1 F Pulse Rate 76 76 67 Respiratory 18 Rate Blood Pressure 122/83 125/69 Blood Pressure [Left] O2 Sat by Pulse 94 Oximetry 11/21/17 11/21/17 11/21/17 08:31 11:30 11:32 Temperature 97.4 F L Pulse Rate 74 73 Respiratory 20 Rate Blood Pressure 159/97 159/97 Blood Pressure 159/97 [Left] O2 Sat by Pulse 93 Oximetry 11/21/17 12:32 Temperature 98.1 F Pulse Rate 73 Respiratory 20 Rate Blood Pressure Blood Pressure 142/89 [Left] O2 Sat by Pulse 96 Oximetry - Labs CBC & Chem 7: 11/20/17 05:35 11/19/17 05:05 Labs: Abnormal lab results 11/20/17 11/20/17 11/20/17 Range/Units 16:33 17:23 20:35 Heparin Anti-Xa Level < 0.10 L (0.3-0.7) U.I./ml POC Glucose 174 H 150 H (70-105) 11/21/17 11/21/17 Range/Units 00:32 08:00 Heparin Anti-Xa Level 0.12 L 0.27 L (0.3-0.7) U.I./ml POC Glucose (70-105)
[2017-11-21] MEDS: NOVOLOG SUB-Q SCH ×2 (16:18→16:19)
[2017-11-21] MEDS: NITRO-BID 2% TP SCH ×2 (16:19→17:54)
[2017-11-21] MEDS: LOPRESSOR PO SCH (21:17)
[2017-11-21] MEDS ORDERED: HEPARIN 10,000 UNITS/10 ML IV ONE (22:14)
--- NOTE | 2017-11-21 23:08 | Progress Note ---
Assessment and Plan 62-year-old male with a past medical history of hypertension and obesity presents to the hospital complaining of jaw pain radiating to his bilateral shoulders and chest intermittent 3 days. Patient is about to get dental implants and had several caps removed from his teeth and therefore he thought that the pain was due to a possible dental infection. Pt has been taking Motrin intermittently which helps with the pain. We stop the Motrin if pain returns. 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 He also denies associated nausea, vomiting, shortness of breath, or diaphoresis. Mild URI symptoms reported. Patient has several stress tests in the past but denies having one within the last 5 years. Father of [place] in his 70s. Patient has a history of smoking but denies current tobacco use. Patient was seen at a [facility] facility prior to transfer to the ED. EKG showed lateral T-wave inversions compared to 2015. Patient has troponin I levels drawn which show elevation of 3.01 with greater than 0.5 positive for acute [place]. Patient received nitroglycerin paste, aspirin, and a heparin bolus of 4000 units prior to transfer to the ED. Patient also had an outpatient chest x-ray with official report that was negative for acute cardiopulmonary process. [facility] provided discussed case with director graphics Dr. Sue prior to transfer to the ED as per [facility] note review. (1) NSTEMI (non-ST elevated myocardial infarction) Current Visit: Yes Status: Acute Plan to address problem: Troponins elevated c/w NSTEMI need bypass, plan to transfer to [facility] Heparin in the mean time Cath Report showed: Significant 3 vessel disease [employer] of the proximal Cx 90-99% stenosis of the distal RCA 60-70% mid LAD LVEF 40-45% (2) HTN (hypertension) Current Visit: Yes Status: Chronic Qualifiers: Hypertension type: essential hypertension Qualified Code(s): I10 - Essential (primary) hypertension Plan to address problem: Losartan and coreg initiated (3) T2DM (type 2 diabetes mellitus) Current Visit: Yes Status: Acute Qualifiers: Diabetes mellitus complication status: without complication Plan to address problem: Patient may have DM A1c 8.4 Coverage in meantime (4) DVT prophylaxis Current Visit: Yes Status: Acute Plan to address problem: on Heparin Subjective Date of service: 01/12/18 Principal diagnosis: NSTEMI Interval history: pt seen and examined waiting for transfer to [facility] very upset this morning as he is not being transferred to [facility] yet Objective - Exam Narrative Exam: - EENT Eyes: Present: PERRL, EOM intact ENT: hearing intact, clear oral mucosa, dentition normal - Neck Neck: Present: supple, normal ROM - Respiratory Respiratory effort: normal Respiratory: bilateral: CTA - Cardiovascular Rhythm: regular Heart Sounds: Present: S1 & S2 - Extremities Extremities: no ischemia, No edema - Abdominal General gastrointestinal: soft, non-tender - Integumentary Integumentary: Present: warm, dry - Psychiatric Psychiatric: appropriate mood/affect - Neurologic Neurologic: no focal deficits - Constitutional Vitals: Vital Signs - 12hr 11/21/17 11/21/17 11/21/17 11:30 11:32 12:05 Temperature 98.1 F Pulse Rate 73 69 Respiratory 20 Rate Blood Pressure 159/97 159/97 142/89 Blood Pressure [Left] O2 Sat by Pulse 95 Oximetry 11/21/17 11/21/17 11/21/17 12:32 15:51 16:19 Temperature 98.1 F 98.3 F Pulse Rate 73 72 59 L Respiratory 20 20 Rate Blood Pressure 141/80 142/89 Blood Pressure 142/89 [Left] O2 Sat by Pulse 96 92 Oximetry 11/21/17 11/21/17 11/21/17 16:39 17:54 21:12 Temperature 98.3 F Pulse Rate 75 75 79 Respiratory 20 Rate Blood Pressure 141/80 122/83 Blood Pressure 141/80 [Left] O2 Sat by Pulse 93 92 Oximetry 11/21/17 11/21/17 11/21/17 21:13 21:16 21:17 Temperature 98.3 F Pulse Rate 76 79 79 Respiratory 20 Rate Blood Pressure 123/83 Blood Pressure 123/83 [Left] O2 Sat by Pulse 93 93 Oximetry - Labs CBC & Chem 7: 11/20/17 05:35 11/19/17 05:05 Labs: Abnormal lab results 11/21/17 11/21/17 11/21/17 Range/Units 00:32 08:00 15:45 Heparin Anti-Xa Level 0.12 L 0.27 L < 0.10 L (0.3-0.7) U.I./ml 01/12/18 Range/Units Unknown Heparin Anti-Xa Level < 0.10 L (0.3-0.7) U.I./ml
[2017-11-22] MEDS: HEPARIN/ 0.45% NACL-25,000 UNIT/500 ML 25,000 UNIT/500 ML BAG IV SCH (02:19)
[2017-11-22 05:03] LABS: Hematocrit 39.2 % (35.5-45.6); Hemoglobin 13.7 gm/dl (11.8-15.2)
[2017-11-22] MEDS: NOVOLOG SUB-Q SCH ×2 (05:18→08:53)
[2017-11-22 07:30] VITALS: BP 110/37
[2017-11-22] MEDS: NITRO-BID 2% TP SCH ×2 (07:39→07:40)
[2017-11-22] MEDS: LOPRESSOR PO SCH (07:40)
== END 2017-11-22 11:14 | disposition short-term general hospital (02) | DRG 282 ==
LOC: ED 08:52 → 4A 11:39
PROVIDERS: ADMIT Internal Medicine; ATTEND Family Medicine
PROC: 4A023N7 Measurement of Cardiac Sampling and Pressure, Left Heart, Percutaneous Approach (ICD-10-PCS; principal; 2017-11-18)
PROC: B2151ZZ Fluoroscopy of Left Heart using Low Osmolar Contrast (ICD-10-PCS; 2017-11-18)
PROC: B2111ZZ Fluoroscopy of Multiple Coronary Arteries using Low Osmolar Contrast (ICD-10-PCS; 2017-11-18)
DX: I21.4 Non-ST elevation (NSTEMI) myocardial infarction (principal); I10 Essential (primary) hypertension; E66.9 Obesity, unspecified; E11.9 Type 2 diabetes mellitus without complications; Z87.891 Personal history of nicotine dependence; Z88.8 Allergy status to other drugs, medicaments and biological substances; Z68.36 Body mass index [BMI] 36.0-36.9, adult
CPT/HCPCS: 36415; 80048; 80061; 82550; 82553; 82962; 83036; 84484; 85014; 85018; 85025; 85049; 85520; 85610; 85730; 93005; 93010; 93458; 96365; A9270-GY; C1894; J1644; J2060; J2250; J3010; J7040; Q9967